=== PATIENT | female | born 2000 | race Native Hawaiian/Other Pacific Islander ===

== ENCOUNTER 2023-07-04 21:04 | Emergency (ER) | payer OTHER ==
[~2023-07-04] VITALS: Ht 172.7 cm; Wt 104.3 kg
[2023-07-04 23:20] VITALS: BP 138/87; TEMP 98
== END 2023-07-04 23:20 | disposition home or self-care (01) ==
LOC: ED 21:04
DX: H93.8X1 Other specified disorders of right ear (principal); R26.89 Other abnormalities of gait and mobility; H83.01 Labyrinthitis, right ear
CPT/HCPCS: 96372; 99282; J1100